=== PATIENT | male | born 1955 | race African-American/Black ===

== ENCOUNTER 2021-08-20 17:55 | Emergency (ER) | payer MEDICARE ==
[~2021-08-20] VITALS: Ht 167.6 cm; Wt 77.0 kg
[2021-08-20 19:07] VITALS: BP 126/80
[2021-08-20 19:32] LABS: BASOPHILS % 1.1 % (0.0-2.0); EOSINOPHILS % 7.8 % (0.0-5.0); HEMATOCRIT. 37.7 % (42.0-52.0); HEMOGLOBIN. 12.2 g/dL (14.0-18.0); LYMPHOCYTES % 24.8 % (20.0-50.0); MEAN CORPUSCULAR HEMOGLOBIN 27.5 pg (28.0-32.0); MEAN CORPUSCULAR VOLUME 85.3 fL (80.0-94.0); MEAN PLATELET VOLUME 7.6 fl (7.4-10.4); MONOCYTES % 7.2 % (2.0-8.0); NEUTROPHILS % 59.1 % (40.0-76.0); PLATELET 353 x1000/uL (130-400); RED BLOOD CELL COUNT 4.42 mill/uL (4.7-6.1); RED CELL DISTRIBUTION WIDTH 16.5 % (11.6-14.6)
[2021-08-20 19:39] LABS: CHLORIDE 97 mEq/L (98-107)
[2021-08-20] MEDS ORDERED: DOXY100C5 MT (20:26)
[2021-08-20] MEDS ORDERED: P20 MT (20:26)
[2021-08-20] MEDS ORDERED: PREDNISONE 20MG TABLET PO ONE (20:30)
[2021-08-20] MEDS ORDERED: DOXYCYCLINE HYCLATE 100MG CAPSULE PO ONE (20:30)
== END 2021-08-20 21:14 | disposition home or self-care (01) ==
LOC: ER 17:55
DX: J44.1 Chronic obstructive pulmonary disease with (acute) exacerbation (principal); I11.0 Hypertensive heart disease with heart failure; I50.9 Heart failure, unspecified
CPT/HCPCS: 36415; 71045; 80053; 83880; 84484; 85025; 93005; 99285; J7512